=== PATIENT | male | born 1985 | race Caucasian/White ===

== ENCOUNTER 2016-11-23 19:26 | Emergency (ER) | payer SELFPAY ==
[~2016-11-23] VITALS: Ht 190.5 cm; Wt 127.0 kg
[2016-11-23 19:29] VITALS: Ht 190.5 cm; Wt 127.0 kg
[2016-11-23] MEDS ORDERED: POLY10DR19 LEFT EYE (20:20)
--- NOTE | 2016-11-23 20:34 | ERD ---
ER Documentation Chief Complaint Date/Time DATE: 11/23/16 TIME: 20:29 Chief Complaint left upper eyelid swelling HPI 31-year-old male complaining of left upper eyelid swelling since yesterday. Patient reports pain of the left upper eyelid when he blinks. Denies trauma to the eye. Denies eye discharge. Denies blurry vision. Denies fever or chills. ROS All systems reviewed and are negative except as per history of present illness. Medications Home Meds Active Scripts Polymyxin B Sulfate-TMP* (Polymyxin B-TMP Eye Drops*) 10 Ml Drops, 1 DROP LEFT EYE QID for 7 Days, EA Prov:JUN PANTOJASteph PEAR PICKER 11/23/16 Allergies Allergies: Coded Allergies: No Known Allergy (Unverified , 11/23/16) PMhx/Soc Medical and Surgical Hx: pt denies Medical Hx, pt denies Surgical Hx Hx Alcohol Use: No Hx Substance Use: No Hx Tobacco Use: No Smoking Status: Never smoker Physical Exam Vitals Vital Signs Date Time Temp Pulse Resp B/P Pulse Ox O2 Delivery O2 Flow Rate FiO2 11/23/16 19:29 97.8 86 20 141/64 99 Physical Exam General: Well-developed, well-nourished, conscious and coherent, in no distress Skin: Warm and dry without rash, good texture and turgor Head: Normocephalic without evidence of trauma Eyes: Sclera and conjunctivae normal; pupils equal, round, and reactive to light; extraocular movements are intact. A small firm nodule noted in the left upper eyelid, with surrounding erythema and swelling. Tender to palpation. Chest: Normal AP diameter. Good expansion without retractions. Nontender. Lungs are clear to auscultate bilaterally with good tidal volume Heart: Regular rate and rhythm. No murmur, rub, or gallops heard Extremities: Full range of motion. Good strength bilaterally. No clubbing, cyanosis, or edema. Peripheral pulses are intact. Sensation intact Neuro: Alert and oriented 4, GCS 15. Cranial nerves grossly intact. Motor and sensory exams nonfocal. Moves all extremities. Speech clear. Gait normal Procedures/MDM Well-appearing 31-year-old male presented to ED with stye of the left upper eyelid. Patient is educated on self-care for stye. Since there is slight erythema and swelling surrounding his stye, I opted to prescribe him with antibiotic eyedrops. I doubt acute angle-closure glaucoma, optic neuritis, central retinal artery occlusion, retinal detachment, orbital or periorbital cellulitis, corneal ulcer, or foreign body. Patient appears well, stable for discharge and outpatient management. Medical decision making shared with patient and family. Education provided to patient and family. Patient and family expressed understanding of the plan. Patient given referral to [facility] and [facility] for follow-up. Medications on discharge: Polytrim ophthalmic. Follow-up: Primary care provider in 2-3 days or go to [facility] if worse Disclaimer: Inadvertent spelling and grammatical errors are likely due to EHR/ dictation software use and do not reflect on the overall quality of patient care. Also, please note that the electronic time recorded on this note does not necessarily reflect the actual time of the patient encounter. Departure Diagnosis: Primary Impression: Stye Laterality: left Eyelid: upper Qualified Code: H00.014 - Hordeolum externum of left upper eyelid Condition: Good Patient Instructions: Sty Referrals: [facility] YOU HAVE RECEIVED A MEDICAL SCREENING EXAM AND THE RESULTS INDICATE THAT YOU DO NOT HAVE A CONDITION THAT REQUIRES URGENT TREATMENT IN THE EMERGENCY DEPARTMENT. FURTHER EVALUATION AND TREATMENT OF YOUR CONDITION CAN WAIT UNTIL YOU ARE SEEN IN YOUR DOCTORS OFFICE WITHIN THE NEXT 1-2 DAYS. IT IS YOUR RESPONSIBILITY TO MAKE AN APPOINTMENT FOR FOLOW-UP CARE. IF YOU HAVE A PRIMARY DOCTOR --you should call your primary doctor and schedule an appointment IF YOU DO NOT HAVE A PRIMARY DOCTOR YOU CAN CALL OUR PHYSICIAN REFERRAL HOTLINE AT IF YOU CAN NOT AFFORD TO SEE A PHYSICIAN YOU CAN CHOSE FROM THE FOLLOWING [facility] [id number] [facility] [address] [facility]. [facility] [address] [facility] [address] [facility] [address] [facility]. [facility]. [address] [facility] Hours: Mon - Fri 9:00 AM - 5:00 PM Additional Instructions: Call your primary care doctor TOMORROW for an appointment during the next 2-3 days.See the doctor sooner or return here if your condition worsens before your appointment time. JUN PANTOJA NP Nov 23, 2016 20:34
[2016-11-23 20:35] VITALS: BP 140/92; PULSE 66; RESP 20; TEMP 97.8
== END 2016-11-23 20:35 | disposition home or self-care (01) ==
LOC: FTE 19:26
DX: H00.014 Hordeolum externum left upper eyelid (principal); R40.2412 Glasgow coma scale score 13-15, at arrival to emergency department
CPT/HCPCS: 99283